=== PATIENT | male | born 1965 | race Caucasian/White ===

== ENCOUNTER → 2016-07-25 | Day surgery (SDC) | payer BC ==
[~2016-07-25] MED LIST: NO MEDICATIONS
--- NOTE | ~2016-07-25 | OR ---
Unit #: [id number] #: [id number] Patient: ARABELLA SEXTON [id number] [address] [place], [place] [address] [id number] MR#: [id number] NAME: ARABELLA SEXTON ROOM: Date of Procedure: 07/25/2016 Admission Date: 07/25/2016 Surgeon: Roby Juárez M.D. : 1965 Attending Physician: Roby Juárez M.D. Primary Care Physician: Ben Atkinson M.D. OPERATIVE REPORT PREOPERATIVE DIAGNOSIS Right inguinal hernia. POSTOPERATIVE DIAGNOSES 1. Direct right inguinal hernia. 2. Direct left inguinal hernia. PROCEDURES PERFORMED 1. Laparoscopic preperitoneal inguinal hernia repair of direct right inguinal hernia. 2. Laparoscopic left inguinal hernia repair of direct left inguinal hernia. [employer] Dr. Frye. ANESTHESIA General endotracheal anesthesia. ESTIMATED BLOOD LOSS Minimal. IV FLUIDS 500 crystalloid. COMPLICATIONS None. INDICATIONS FOR PROCEDURE The patient is a 53-year-old gentleman, with bulges bilateral consistent with inguinal hernias. He presents for laparoscopic inguinal hernia repair. DESCRIPTION OF PROCEDURE The patient was taken to the operating theater and placed in supine position. General anesthesia was induced. The abdomen was prepped and draped. Infraumbilical incision was then made. A small incision was made in the anterior sheath creating a preperitoneal space with blunt dissection. A Veress needle was placed intra-abdominally. The abdomen was insufflated to 15 mmHg with CO2. I then placed a 5-mm port. The patient was placed in Trendelenburg. I identified a right-sided direct inguinal hernia and. Left-sided direct inguinal hernia. I saw no other Unit #: [id number] #: [id number] Patient: ARABELLA SEXTON abnormalities. I then removed the pneumoperitoneum. Using the AutoSuture balloon dissection system, I created the preperitoneal space bilateral. I placed two 5-mm ports in the midline. I dissected the right groin. I then identified the epigastric vessels to create a lateral space. I reduced the direct hernia. I identified the cord. The cord was skeletonized and the peritoneal sac was reduced. Using a large 3DMax mesh, I then placed this mesh anterior over the direct and indirect defects. This was secured with a SorbaFix Tacker to Darshan ligament as well as lateral anterior musculature. I then positioned to the other side. I created the lateral space. The direct defect was reduced. I identified the cord. The cord was skeletonized. The peritoneal sac was then reduced. I then placed a large 3DMax mesh into position. This was anteriolized and secured to Darshan ligament as well as lateral anterior musculature with a SorbaFix Tacker. Under direct vision, I released the pneumopreperitoneum with care taken to avoid the peritoneum sliding posterior to the mesh. Hemostasis was adequate. I removed the ports under direct vision and closed the fascia with 0 Vicryl and skin with 4-0 Vicryl. The patient tolerated the procedure well and sent to recovery room in good condition. Dictated by... Alyson Whitt/anne TD: 07/26/2016 03:03 JOB #: [id number] OPERATIVE REPORT Page 1 of 1 X Roby Juárez MD X PROCEDURE OPERATIVE NOTE
== END | disposition home or self-care (01) ==
LOC: CSUR 05:43
DX: K40.20 Bilateral inguinal hernia, without obstruction or gangrene, not specified as recurrent (principal); I10 Essential (primary) hypertension
CPT/HCPCS: C1781; J0330; J0690; J1100; J2250; J2405; J2710; J3010